=== PATIENT | male | born 1985 | race Caucasian/White ===

== ENCOUNTER 2016-03-05 11:38 | Emergency (ER) | payer OTHER ==
[~2016-03-05] VITALS: Wt 80.0 kg
[~2016-03-05 11:38] MED LIST: DIVA500T7 PO; LEVE500S9 PO
[2016-03-05] MEDS ORDERED: ONDA4TAB11 PO (11:44)
[2016-03-05] MEDS ORDERED: UDLOM GTB (11:44)
[2016-03-05] MEDS ORDERED: NAPR-688 PO (11:46)
--- NOTE | 2016-03-05 11:51 | ERD ---
ER Documentation Chief Complaint Date/Time DATE: 03/05/16 TIME: 11:48 Chief Complaint diarrhea for the past few hours. some abd cramping HPI This 2 to 9-year-old male comes emergency room because he woke up with diarrhea for hours ago. Said approximately separate episodes watery diarrhea with no blood. Denies having any nausea yet. Does have a generalized crampy abdominal pain that is intermittent and currently is very mild. Denies any fevers or chills. Denies any cough chest pain or other symptoms. He has not had abdominal surgery. ROS All systems reviewed and are negative except as per history of present illness. Medications Home Meds Active Scripts Naproxen* (Naproxen*) 500 Mg Tablet, 500 MG PO BID Y for PAIN, #12 TAB Prov:LADI SCHWAB DO 03/05/16 Diphenoxylate Hcl-Atropine* (Lomotil*) 5 Ml Soln, 5 ML GTB Q6H Y for DIARRHEA, # 14 ML Prov:LADI SCHWAB DO 03/05/16 Ondansetron (Zofran Odt) 4 Mg Tab.rapdis, 4 MG PO Q6, #5 Prov:LADI SCHWAB DO 03/05/16 Levetiracetam* (Keppra*) 500 Mg/5 Ml Solution, 750 MG PO BID, #60 BOTTLE Prov:SREEKANTH HENAO DO 04/14/15 Reported Medications Divalproex Sodium* (Depakote*) 500 Mg Tablet.dr, PO BID, #120 TAB 02/19/15 Allergies Allergies: Coded Allergies: No Known Allergy (Unverified , 04/07/15) PMhx/Soc History of Surgery: No Anesthesia Reaction: No Hx Neurological Disorder: Yes (seizures) Hx Respiratory Disorders: No Hx Cardiac Disorders: No Hx Psychiatric Problems: Yes Hx Miscellaneous Medical Probl: Yes (SCHIZOPHRENIA) Hx Alcohol Use: Yes Hx Substance Use: Yes (methamphetamine) Hx Tobacco Use: Yes Physical Exam Vitals Vital Signs Date Time Temp Pulse Resp B/P Pulse Ox O2 Delivery O2 Flow Rate FiO2 03/05/16 11:43 98.5 78 20 133/89 98 Physical Exam Const: [] No distress Head: Atraumatic Eyes: Normal Conjunctiva ENT: Normal External Ears, Nose and Mouth. Neck: Full range of motion..~ No meningismus. Resp: Clear to auscultation bilaterally Cardio: Regular rate and rhythm, no murmurs Abd: Soft, non tender, non distended. Normal bowel sounds Ext: No cyanosis, or edema Neur: Awake and alert and oriented 3, no focal deficits Psych: Normal Mood and Affect Procedures/MDM 31-year-old male with enteritis persistent described. Patient is well-appearing no signs of dehydration. Endocrine discharge her with Lomotil as well as naproxen for inflammation and pain. Also discharging with a few tabs of Zofran ODT in case he develops nausea so that he can stay well-hydrated. Benign abdominal exam. Urinalysis patient for serious bacterial infection, surgical emergency such as appendicitis,. Providing and discharge patient with primary care follow-up within the next couple of days. Return precautions to the ER also given. Patient verbalized understanding of these instructions. Departure Diagnosis: Primary Impression: Diarrhea Condition: Stable Patient Instructions: Self-Care for Vomiting and Diarrhea Referrals: [facility] YOU HAVE RECEIVED A MEDICAL SCREENING EXAM AND THE RESULTS INDICATE THAT YOU DO NOT HAVE A CONDITION THAT REQUIRES URGENT TREATMENT IN THE EMERGENCY DEPARTMENT. FURTHER EVALUATION AND TREATMENT OF YOUR CONDITION CAN WAIT UNTIL YOU ARE SEEN IN YOUR DOCTORS OFFICE WITHIN THE NEXT 1-2 DAYS. IT IS YOUR RESPONSIBILITY TO MAKE AN APPOINTMENT FOR FOLOW-UP CARE. IF YOU HAVE A PRIMARY DOCTOR --you should call your primary doctor and schedule an appointment IF YOU DO NOT HAVE A PRIMARY DOCTOR YOU CAN CALL OUR PHYSICIAN REFERRAL HOTLINE AT IF YOU CAN NOT AFFORD TO SEE A PHYSICIAN YOU CAN CHOSE FROM THE FOLLOWING [facility] CLINICS [facility] [address] [facility] [address] [facility] [facility] [address] [facility] [address] [facility] [address] [facility]. [facility]. [address] [facility]. [facility] YOU HAVE RECEIVED A MEDICAL SCREENING EXAM AND THE RESULTS INDICATE THAT YOU DO NOT HAVE A CONDITION THAT REQUIRES URGENT TREATMENT IN THE EMERGENCY DEPARTMENT. FURTHER EVALUATION AND TREATMENT OF YOUR CONDITION CAN WAIT UNTIL YOU ARE SEEN IN YOUR DOCTORS OFFICE WITHIN THE NEXT 1-2 DAYS. IT IS YOUR RESPONSIBILITY TO MAKE AN APPOINTMENT FOR FOLOW-UP CARE. IF YOU HAVE A PRIMARY DOCTOR --you should call your primary doctor and schedule and appointment IF YOU DO NOT HAVE A PRIMARY DOCTOR YOU CAN CALL OUR PHYSICIAN REFERRAL HOTLINE AT . IF YOU CAN NOT AFFORD TO SEE A PHYSICIAN YOU CAN CHOSE FROM THE FOLLOWING [facility] INSTITUTIONS: [facility] [address] [place] [address] [facility] [address] [place] [address] [facility] + [facility] [address] [place] [address] Additional Instructions: Call your primary care doctor TOMORROW for an appointment during the next 1-2 days.See the doctor sooner or return here if your condition worsens before your appointment time. LADI SCHWAB DO Mar 05, 2016 11:51
== END 2016-03-05 12:05 | disposition home or self-care (01) ==
LOC: E/R 11:38
DX: R19.7 Diarrhea, unspecified (principal)
CPT/HCPCS: 99284

== ENCOUNTER 2016-06-06 09:23 | Emergency (ER) | payer OTHER ==
[~2016-06-06] VITALS: Wt 80.0 kg
[~2016-06-06 09:23] MED LIST changes: +NAPR-688 PO; +ONDA4TAB11 PO; +UDLOM GTB
[2016-06-06] MEDS ORDERED: TYL500 PO (10:55)
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
== END 2016-06-06 11:03 ==
LOC: FTE 09:23
DX: T65.891A Toxic effect of other specified substances, accidental (unintentional), initial encounter (principal); F17.210 Nicotine dependence, cigarettes, uncomplicated
CPT/HCPCS: 99283